=== PATIENT | female | born 1990 ===

== ENCOUNTER 2020-12-28 19:21 | Emergency (ER) | payer OTHER ==
[2020-12-28 20:25] LABS: ANION GAP 8.5 meq/L (7-15); CHLORIDE,CL 105 mmol/L (98-107); SODIUM,NA 141 mmol/L (136-145)
[2020-12-28 20:36] LABS: CORONAVIRUS COVID-19 NAA NEGATIVE (NEGATIVE)
[2020-12-28 20:37] LABS: RESPIRATORY SYNCYTIAL VIR NAA POSITIVE (NEGATIVE)
[2020-12-28] MEDS ORDERED: predniSONE 20 MG Tab PO ONE (20:43)
[2020-12-28] MEDS ORDERED: Albuterol 6.7 GM Inhaler INH ONE (20:43)
[2020-12-28] MEDS ORDERED: Benzonatate 100 MG Cap PO ONE (20:44)
--- NOTE | 2020-12-28 20:45 | EDM.PDOC ---
ED HPI GENERAL MEDICAL PROBLEM - General Chief Complaint: General Stated Complaint: cough,sore throat Time Seen by Provider: 12/28/20 19:33 Source of Information: Reports: Patient History Limitations: Reports: No Limitations - History of Present Illness INITIAL COMMENTS - FREE TEXT/NARRATIVE: 3 day history of cough/chills/body aches/headache. Loose stools this morning. No emesis. No specific fevers. Has sore throat. No runny nose or ear pain. No SOB/sputum production. No chest/abdominal pain. Urinating well. - Related Data Allergies Allergy/AdvReac Type Severity Reaction Status Date / Time No Known Allergies Allergy Verified 12/28/20 19:29 Home Meds: Home Meds Benzonatate [Tessalon Perles] 100 mg PO TID PRN #30 cap 12/28/20 [Rx] Past Medical History - Past Health History Medical/Surgical History: Denies Medical/Surgical History Social & Family History - Tobacco Use Tobacco Use Status *Q: Never Tobacco User - Alcohol Use Alcohol Use History: No - Recreational Drug Use Recreational Drug Use: No Drug Use in Last 12 Months: No - Sexual History Sexual History: Reports: None ED ROS GENERAL - Review of Systems Review Of Systems: Comprehensive ROS is negative, except as noted in HPI. ED EXAM, GENERAL - Physical Exam Exam: See Below Exam Limited By: No Limitations General Appearance: Alert, WD/WN, No Apparent Distress, Other (frequent coughing) Eye Exam: Bilateral Eye: EOMI, PERRL Ears: Normal External Exam, Normal Canal, Hearing Grossly Normal Nose: No: Nasal Deformity, Nasal Swelling, Nasal Drainage Throat/Mouth: Normal Inspection, Normal Lips, Normal Oropharynx, Normal Voice, No Airway Compromise Head: Atraumatic, Normocephalic Neck: Normal Inspection, Supple, Non-Tender, Full Range of Motion. No: Lymphadenopathy (L), Lymphadenopathy (R) Respiratory/Chest: No Respiratory Distress, Lungs Clear, Normal Breath Sounds, No Accessory Muscle Use, Chest Non-Tender Cardiovascular: Regular Rate, Rhythm, No Murmur GI/Abdominal: Normal Bowel Sounds, Soft, Non-Tender, No Distention (Female) Exam: Deferred Rectal (Female) Exam: Deferred Back Exam: Normal Inspection Extremities: Normal Inspection, Normal Range of Motion, Non-Tender, Normal Capillary Refill Neurological: Alert, Oriented, CN II-XII Intact, Normal Cognition, Normal Gait, No Motor/Sensory Deficits Psychiatric: Normal Affect, Normal Mood Skin Exam: Warm, Dry, Intact, Normal Color Course - Orders/Labs/Meds Orders: Active Orders 24 hr Category Date Time Status RT Post Treatment Assessment [RC] Click to Edit Care 12/28/20 20:43 Ordered RT Pre-Treatment Assessment [RC] Click to Edit Care 12/28/20 20:43 Ordered Chest 1V Frontal [CR] Stat Exams 12/28/20 20:39 Ordered COVID-19/FLU A+B/RSV [MOLEC] Stat Lab 12/28/20 19:33 Ordered CULTURE STREP A CONFIRMATION [RM] Stat Lab 12/28/20 19:32 Results STREP SCRN A RAPID W CULT CONF [RM] Stat Lab 12/28/20 20:16 Ordered Labs: Laboratory Tests 12/28/20 12/28/20 12/28/20 Range/Units 19:32 20:00 20:00 WBC 11.5 H (4.0-10.2) K/uL RBC 4.59 (3.77-5.09) M/uL Hgb 11.2 L (11.7-15.5) g/dL Hct 35.6 (34.0-46.0) % MCV 77.6 L (84.0-98.0) fL MCH 24.4 L (28.2-33.3) pg MCHC 31.5 L (31.7-36.0) g/dL RDW 17.9 H (11.2-14.1) % Plt Count 350 (150-350) K/uL Neut % (Auto) 70.0 (45.0-80.0) % Lymph % (Auto) 20.9 (10.0-50.0) % Forrest % (Auto) 7.0 (2.0-14.0) % Eos % (Auto) 1.9 (0.0-5.0) % Baso % (Auto) 0.2 (0.0-2.0) % Neut # (Auto) 8.06 H (1.40-7.00) K/uL Lymph # (Auto) 2.40 (0.50-3.50) K/uL Forrest # (Auto) 0.81 (0.00-1.00) K/uL Eos # (Auto) 0.22 (0.00-0.50) K/uL Baso # (Auto) 0.02 (0.00-0.20) K/uL Sodium 141 (136-145) mmol/L Potassium 3.8 (3.5-5.1) mmol/L Chloride 105 (98-107) mmol/L Carbon Dioxide 27.5 (21.0-32.0) mmol/L Anion Gap 8.5 (7-15) meq/L BUN 9 (7-18) mg/dL Creatinine 0.71 (0.51-1.17) mg/dL Est Cr Clr Drug Dosing TNP Estimated GFR (MDRD) > 60 mL/min Glucose 132 H (70-99) mg/dL Calcium 8.7 (8.5-10.1) mg/dL Total Bilirubin 0.2 (0.2-1.0) mg/dL AST 13 L (15-37) U/L ALT 20 (12-78) U/L Alkaline Phosphatase 64 (46-116) IU/L Total Protein 7.2 (6.4-8.2) g/dL Albumin 3.4 (3.4-5.0) g/dL Specimen Type Urine Color Urine Appearance Urine pH (5.0-9.0) Ur Specific [place] (1.005-1.030) Urine Protein (NEGATIVE) mg/dL Urine Glucose (UA) (NEGATIVE) mg/dL Urine Ketones (NEGATIVE) mg/dL Urine Occult Blood (NEGATIVE) Urine Nitrite (NEGATIVE) Urine Bilirubin (NEGATIVE) Urine Urobilinogen (0.2-1.0) E.U./dL Ur Leukocyte Esterase (NEGATIVE) U Hyaline Cast (Auto) Urine RBC /HPF Urine WBC /HPF Ur Epithelial Cells /LPF Urine Bacteria (NONE TO FEW) /HPF Urine Mucus (NEGATIVE) /LPF Urine Yeast (NEGATIVE) /HPF Influenza Type A RNA Negative (NEGATIVE) RSV RNA (INAAT) Positive (NEGATIVE) Influenza Type B RNA Negative (NEGATIVE) SARS-CoV-2 RNA (JAMEEL) Negative (NEGATIVE) 12/28/20 Range/Units 20:25 WBC (4.0-10.2) K/uL RBC (3.77-5.09) M/uL Hgb (11.7-15.5) g/dL Hct (34.0-46.0) % MCV (84.0-98.0) fL MCH (28.2-33.3) pg MCHC (31.7-36.0) g/dL RDW (11.2-14.1) % Plt Count (150-350) K/uL Neut % (Auto) (45.0-80.0) % Lymph % (Auto) (10.0-50.0) % Forrest % (Auto) (2.0-14.0) % Eos % (Auto) (0.0-5.0) % Baso % (Auto) (0.0-2.0) % Neut # (Auto) (1.40-7.00) K/uL Lymph # (Auto) (0.50-3.50) K/uL Forrest # (Auto) (0.00-1.00) K/uL Eos # (Auto) (0.00-0.50) K/uL Baso # (Auto) (0.00-0.20) K/uL Sodium (136-145) mmol/L Potassium (3.5-5.1) mmol/L Chloride (98-107) mmol/L Carbon Dioxide (21.0-32.0) mmol/L Anion Gap (7-15) meq/L BUN (7-18) mg/dL Creatinine (0.51-1.17) mg/dL Est Cr Clr Drug Dosing Estimated GFR (MDRD) mL/min Glucose (70-99) mg/dL Calcium (8.5-10.1) mg/dL Total Bilirubin (0.2-1.0) mg/dL AST (15-37) U/L ALT (12-78) U/L Alkaline Phosphatase (46-116) IU/L Total Protein (6.4-8.2) g/dL Albumin (3.4-5.0) g/dL Specimen Type Urinvoid Urine Color Yellow Urine Appearance Clear Urine pH 5.5 (5.0-9.0) Ur Specific [place] >= 1.030 (1.005-1.030) Urine Protein Negative (NEGATIVE) mg/dL Urine Glucose (UA) Negative (NEGATIVE) mg/dL Urine Ketones Negative (NEGATIVE) mg/dL Urine Occult Blood Negative (NEGATIVE) Urine Nitrite Negative (NEGATIVE) Urine Bilirubin Negative (NEGATIVE) Urine Urobilinogen 0.2 (0.2-1.0) E.U./dL Ur Leukocyte Esterase Negative (NEGATIVE) U Hyaline Cast (Auto) Rare Urine RBC 0-5 /HPF Urine WBC 0-5 /HPF Ur Epithelial Cells Moderate H /LPF Urine Bacteria Rare (NONE TO FEW) /HPF Urine Mucus Many H (NEGATIVE) /LPF Urine Yeast Rare H (NEGATIVE) /HPF Influenza Type A RNA (NEGATIVE) RSV RNA (INAAT) (NEGATIVE) Influenza Type B RNA (NEGATIVE) SARS-CoV-2 RNA (JAMEEL) (NEGATIVE) Meds: Medications Discontinued Medications Generic Name Dose Route Start Last Admin Trade Name Freq PRN Reason Stop Dose Admin Albuterol 0 gm 12/28/20 20:43 Albuterol 6.7 Gm Inhaler INH 12/28/20 20:44 ONETIME ONE Benzonatate 200 mg 12/28/20 20:44 Benzonatate 100 Mg Cap PO 12/28/20 20:45 ONETIME ONE Prednisone 40 mg 12/28/20 20:43 Prednisone 20 Mg Tab PO 12/28/20 20:44 ONETIME ONE Tramadol HCl 50 mg 12/28/20 20:52 Tramadol 50 Mg Tab PO 12/28/20 20:53 ONETIME ONE - Radiology Interpretation Free Text/Narrative:: No focal consolidations on chest xray - Re-Assessments/Exams Free Text/Narrative Re-Assessment/Exam: 12/28/20 20:45 Labs ordered. Mild elevation WBC. Mild microcytic anemia RSV positive Negative Covid/strep/influenza. Plan at this time is to give patient single prednisone dose along with Tessalon and albuterol MDI dose. Rx for additional Tessalon given to patient. She is to continue to use inhaler 1-2 puffs every 4-6 hours prn cough. Departure - Departure Time of Disposition: 21:03 Disposition: Home, Self-Care 01 Condition: Good Clinical Impression: RSV (acute bronchiolitis due to respiratory syncytial virus), Microcytic anemia - Discharge Information *PRESCRIPTION DRUG MONITORING PROGRAM REVIEWED*: Not Applicable *COPY OF PRESCRIPTION DRUG MONITORING REPORT IN PATIENT [place]: Not Applicable Prescriptions: Benzonatate [Tessalon Perles] 100 mg PO TID PRN #30 cap PRN Reason: Cough Instructions: Metered Dose Inhaler (No Spacer Used), Respiratory Syncytial Virus Infection, Adult Forms: ED Department Discharge Additional Instructions: You have RSV viral infection. Things should hopefully start to improve in a few days. Try to use the inhaler 1-2 puffs every 4-6 hours to help with cough. Use the Tessalon once every 8 hours for cough. Drink plenty of water or tea and rest. Follow up for recheck if you have sudden severe worsening. Tylenol and/or Ibuprofen for pain. Also, follow up with local clinic for evaluation of mild anemia that was noted on your lab work tonight. - My Orders Last 24 Hours: My Active Orders 12/28/20 19:32 CULTURE STREP A CONFIRMATION [RM] Stat 12/28/20 19:33 COVID-19/FLU A+B/RSV [MOLEC] Stat 12/28/20 20:16 STREP SCRN A RAPID W CULT CONF [RM] Stat 12/28/20 20:39 Chest 1V Frontal [CR] Stat 12/28/20 20:43 RT Post Treatment Assessment [RC] Click to Edit RT Pre-Treatment Assessment [RC] Click to Edit - Assessment/Plan Last 24 Hours: My Active Orders 12/28/20 19:32 CULTURE STREP A CONFIRMATION [RM] Stat 12/28/20 19:33 COVID-19/FLU A+B/RSV [MOLEC] Stat 12/28/20 20:16 STREP SCRN A RAPID W CULT CONF [RM] Stat 12/28/20 20:39 Chest 1V Frontal [CR] Stat 12/28/20 20:43 RT Post Treatment Assessment [RC] Click to Edit RT Pre-Treatment Assessment [RC] Click to Edit
[2020-12-28] MEDS ORDERED: traMADol 50 MG Tab PO ONE (20:52)
== END 2020-12-28 21:27 | disposition home or self-care (01) ==
LOC: LL.ED 19:21
DX: J21.0 Acute bronchiolitis due to respiratory syncytial virus (principal); D50.9 Iron deficiency anemia, unspecified; Z20.822 Contact with and (suspected) exposure to COVID-19
CPT/HCPCS: 0241U; 36415; 71045; 80053; 81001; 85025; 87081; 87430; 94640; 99284; 99284-25; A9270-GY; J7512